=== PATIENT | male | born 2000 | race Caucasian/White ===

== ENCOUNTER 2023-10-11 00:21 | Emergency (ER) | payer SELFPAY ==
--- NOTE | ~2023-10-11 | CT_ITS ---
EXAMINATION: CT HEAD WITHOUT CONTRAST CLINICAL INFORMATION: Acute headache and syncope COMPARISON: None available. TECHNIQUE: Contiguous axial imaging was performed from the skull base to vertex without intravenous administration of contrast. This CT examination was performed using dose optimization techniques as appropriate, variously including the following: *Automated exposure control *Adjustment of mA and/or kV according to patient size (this includes techniques or standardized protocols for targeted exams where dose is matched to indication/reason for exam; i.e. extremities or head) *Use of iterative reconstruction technique DLP: 592 mGy-cm FINDINGS: There is no evidence of acute intracranial hemorrhage or territorial infarction. No abnormal mass-effect or midline shift is seen. Martin to white matter differentiation is well preserved. No extra-axial fluid collections are identified. The ventricles are normal in size. There is no abnormal attenuation within the brain parenchyma. The osseous structures and soft tissues are normal. The mastoid air cells and visualized portions of the paranasal sinuses are well-aerated. CT/CT head/brain wo IV con IMPRESSION: No acute intracranial pathology.
--- NOTE | ~2023-10-11 | XR_ITS ---
EXAMINATION: XR CHEST CLINICAL INFORMATION: Shortness of breath COMPARISON: None available. TECHNIQUE: 2 views of the chest were obtained. FINDINGS: The lungs are clear with no focal consolidation. No evidence of pneumothorax, pulmonary edema, or pleural effusions. The cardiomediastinal silhouette is unremarkable. No acute osseous findings. XR/XR chest 2V IMPRESSION: No acute cardiopulmonary findings.
--- NOTE | 2023-10-11 00:35 | ECG_ITS ---
Test Reason : CP Blood Pressure : / mmHG Vent. Rate : 071 BPM Atrial Rate : 071 BPM P-R Int : 142 ms QRS Dur : 102 ms QT Int : 374 ms P-R-T Axes : 062 073 062 degrees QTc Int : 406 ms Normal sinus rhythm Normal ECG No previous ECGs available Referred By: Generic ED Physician Electronically Signed By:Feroz Piña
[2023-10-11 00:37] VITALS: BP 106/68; BP 116/78; PULSE 100; PULSE 86; RESP 16; TEMP 36.7; O2SAT 97; O2SAT 99; BMI 19.4
[2023-10-11 00:51] LABS: MANUAL DIFF FLAG NO
[2023-10-11 00:53] LABS: Basophils Percent Auto 0.3 % (0-2); Eosinophils Absolute Auto 0.1 X10*3/uL (0.0-0.4); Eosinophils Percent Auto 1.3 % (0-4); Hemoglobin 14.7 g/dl (14.0-18.0); Imm Gran Abs Auto 0.02 X10*3/uL (0.00-0.03); Imm Gran Pct Auto 0.3 % (0.0-0.4); Lymphocytes Absolute Auto 2.4 X10*3/uL (1.2-4.9); Lymphocytes Percent Auto 38.4 % (20-40); Mean Corpuscular HGB Conc 34.2 g/dl (31.0-36.0); Mean Corpuscular Hemoglobin 29.3 pg (27.0-33.0); Mean Corpuscular Volume 85.7 fL (80.0-98.0); Monocytes Absolute Auto 0.6 X10*3/uL (0.1-1.2); Monocytes Percent Auto 8.8 % (2-11); Neutrophils Absolute Auto 3.2 x10*3/uL (2.0-8.3); Neutrophils Percent Auto 50.9 % (45-73); Platelet Count 210 X10*3/uL (160-400); Red Blood Count 5.02 X10*6/uL (4.60-5.80); Red Cell Distribution Width 12.9 % (11.0-16.0); White Blood Count 6.3 X10*3/uL (4.8-10.8)
[2023-10-11 01:13] LABS: Alanine Aminotransferase 21 U/L (0-40); Albumin Level 4.8 g/dL (3.5-5.0); Alkaline Phosphatase 57 U/L (39-117); Anion Gap 11 (12-20); Aspartate Amino Transferase 14 U/L (5-37); Bilirubin Total 0.9 mg/dL (0.0-1.0); Blood Urea Nitrogen 4 mg/dL (9-16); Calcium 10.3 mg/dL (8.4-10.2); Carbon Dioxide 29 mmol/L (22-29); Chloride 104 mmol/L (96-108); Creatinine Clr Calc Pharmacy 102.2; Estimated Glomerular Filt Rate > 60; Glucose Random 89 mg/dL (60-115); Potassium 3.8 mmol/L (3.3-5.1); Sodium 140 mmol/L (135-145); Total Protein 7.5 g/dL (6.5-8.0)
[2023-10-11 01:25] LABS: Troponin-I High Sensitivity < 2.7 ng/L (<3.5-35.0)
[2023-10-11 02:00] VITALS: BP 109/74; PULSE 57; RESP 15; TEMP 36.6; O2SAT 98
--- NOTE | 2023-10-11 03:18 | ED.CHESTPAIN ---
HPI - Chest Pain General Chief Complaint: Chest Pain Stated Complaint: nose bleed & lightheaded Time Seen by Provider: 10/11/23 03:18 History of Present Illness ED Provider: Meng MORRIS narrative: The patient is a 23-year-old male who was brought to the hospital by ambulance after apparently passing out. Apparently the patient had had a nosebleed just before passing out. The patient tells me that he has a headache. He says he does not typically get headaches. He is not very forthcoming about the details of the events that brought him here. He says he does not remember exactly what happened at the time of the incident. He only tells me that he currently has a headache and that he does not typically get headaches. Apparently he had not mentioned a headache to the triage nurse however. At that time he reported chest pain and shortness of breath. Related Data Allergies Allergy/AdvReac Type Severity Reaction Status Date / Time No Known Allergies Allergy Verified 10/11/23 00:40 Review of Systems Review of Systems: Yes all other systems are reviewed and are negative [facility] Social History Social History Smoked in Last 30 Days: No Use of substances other than those prescribed or required for medical reasons: No Advance Directives: No Advance Directives Information Provided: No Do you have a plan to hurt others: No Plan Physical Exam Vital Signs: Vital Signs: Last Vital Signs Temp 97.7 F 10/11/23 05:51 Pulse 63 10/11/23 05:51 Resp 14 10/11/23 05:51 BP 116/79 10/11/23 05:51 Pulse Ox 100 10/11/23 05:51 O2 Del Method Room Air 10/11/23 05:51 BMI result Body Mass Index 19.4 Const: Other: The patient is a thin 23-year-old male who was asleep when I first encountered him. He awoke with tactile stimuli. He seemed apprehensive about talking to me and was not very forthcoming about what brought him to the emergency department. He did not seem in any distress. He complained of a headache but did not look uncomfortable. HEENT: Other: Face is symmetrical. Mucous membranes moist. No epistaxis. Eyes: Other: Pupils were round equal, conjunctivae clear, extraocular movements intact. Neck: Other: No cervical adenopathy. The neck is supple. Resp: Effort & Inspection: normal respiratory effort Auscultation: clear to auscultation bilaterally Cardio: Rate: regular rate Rhythm: regular rhythm Heart sounds: S1 normal heart sound present and S2 normal heart sound present Skin: Other: Skin is dry and unremarkable Neuro: Other: The patient was sleeping. He seemed to be sleeping peacefully. He awoke with tactile stimuli. He seemed apprehensive about talking to me but did not have an abnormal mental status. Cranial nerves 2-12 are intact. He moves all 4 extremities normally and appropriately. He had a supple neck. Extrem: Other: No trauma to the extremities. No deformities. No edema. Medications Administered Discontinued Medications Generic Name Dose Route Start Last Admin Trade Name Freq PRN Reason Stop Dose Admin Acetaminophen 975 mg 10/11/23 05:18 10/11/23 05:52 Acetaminophen 325 Mg Tablet PO 10/11/23 05:19 975 mg ONCE ONE Administration Ibuprofen 400 mg 10/11/23 05:18 10/11/23 05:52 Ibuprofen 400 Mg Tablet PO 10/11/23 05:19 400 mg ONCE ONE Administration Medical Decision Making Medical Decision Making [facility] Narrative: The patient is a 23-year-old male who comes to the emergency room after having had an apparent syncopal episode. Apparently with the patient 1st arrived he complained of chest pain and shortness of breath. When I spoke to him he complained only of having had a headache associated with the syncope. He was not able to give me any significant details about any prodromal symptoms. He seemed unwilling to give any significant details. Given the complaint of a headache with syncope I obtained a head CT that was negative. This was done within 6 hours of the onset of his headache. I think this excludes any possibility of a subarachnoid hemorrhage. When I spoke to the patient after his negative head CT he then said that he had had chest pain and shortness of breath. While sleeping in the emergency department he has been sleeping very comfortably with a heart rate in the 50s and an excellent oxygen saturation on room air and a normal respiratory rate. I do not have any significant concern for pulmonary embolism. I felt the patient at that point could be discharged. Lab Data 10/11/23 00:48 10/11/23 00:48 Labs: Lab Results 10/11/23 Range/Units 00:48 WBC 6.3 (4.8-10.8) X10*3/uL RBC 5.02 (4.60-5.80) X10*6/uL Hgb 14.7 (14.0-18.0) g/dl Hct 43.0 (42.0-52.0) % MCV 85.7 (80.0-98.0) fL MCH 29.3 (27.0-33.0) pg MCHC 34.2 (31.0-36.0) g/dl RDW 12.9 (11.0-16.0) % Plt Count 210 (160-400) X10*3/uL MPV 11.0 (9.4-12.4) fL Immature Gran % (Auto) 0.3 (0.0-0.4) % Neut % (Auto) 50.9 (45-73) % Lymph % (Auto) 38.4 (20-40) % Kinney % (Auto) 8.8 (2-11) % Eos % (Auto) 1.3 (0-4) % Baso % (Auto) 0.3 (0-2) % Lymph # (Auto) 2.4 (1.2-4.9) X10*3/uL Kinney # (Auto) 0.6 (0.1-1.2) X10*3/uL Eos # (Auto) 0.1 (0.0-0.4) X10*3/uL Baso # (Auto) 0.0 (0.0-0.2) X10*3/uL Abs Immat Gran (auto) 0.02 (0.00-0.03) X10*3/uL Absolute Neuts (auto) 3.2 (2.0-8.3) x10*3/uL Absolute Nucleated RBC 0.000 (0.0-0.012) X10*3/uL Nucleated RBC % (auto) 0.0 (0.0-0.2) /100WBC Sodium 140 (135-145) mmol/L Potassium 3.8 (3.3-5.1) mmol/L Chloride 104 (96-108) mmol/L Carbon Dioxide 29 (22-29) mmol/L Anion Gap 11 L (12-20) BUN 4 L (9-16) mg/dL Creatinine 0.88 (0.5-1.4) mg/dL Estim Creat Clear Calc 102.2 Estimated GFR > 60 Random Glucose 89 (60-115) mg/dL Calcium 10.3 H (8.4-10.2) mg/dL Total Bilirubin 0.9 (0.0-1.0) mg/dL AST 14 (5-37) U/L ALT 21 (0-40) U/L Alkaline Phosphatase 57 (39-117) U/L Troponin I High Sens < 2.7 (<3.5-35.0) ng/L Total Protein 7.5 (6.5-8.0) g/dL Albumin 4.8 (3.5-5.0) g/dL Independent Interpretation I performed an independent interpretation of an: EKG Interpretation: EKG at 00:59 shows normal sinus rhythm at 71 beats per minute. It is a normal EKG. Discharge Plan Discharge Clinical Impression: Syncope, Chest pain, Nosebleed, Headache Patient Disposition: Home, Self-Care Additional Instructions: Your testing in the emergency room today is very reassuring. There does not seem to be any dangerous process related to your headache or your chest pain. Please plan on resting and taking it easy. Please plan on following up with your regular doctor. Return to the emergency room if significantly worse. Interventions: ED Discharge Assessment Last Done: 10/11/23 05:51 Discharge Date/Time: 10/11/23 06:10 Print Language: Upper Sorbian
[2023-10-11 05:49] VITALS: BP 116/79; PULSE 63; RESP 14; TEMP 36.5; O2SAT 100
[2023-10-11 05:51] VITALS: BP 116/79; PULSE 63; RESP 14; TEMP 36.5; O2SAT 100
[2023-10-11] MEDS: Ibuprofen 400 MG TABLET PO (05:52)
[2023-10-11] MEDS: Acetaminophen 325 MG TABLET 975 MG PO (05:52)
== END 2023-10-11 06:10 | disposition home or self-care (01) ==
PROVIDERS: Emergency Provider Emergency Medicine
DX: R07.89 Other chest pain (principal); R51.9 Headache, unspecified; R55 Syncope and collapse; R04.0 Epistaxis
CPT/HCPCS: 36415; 70450; 71046; 80053; 84484; 85025; 93005; 99284; 99285

== ENCOUNTER → 2023-10-11 00:35 | Outpatient (BNV) | payer SELFPAY | PROVIDERS: Emergency Provider Emergency Medicine; Visit Provider Internal Medicine Cardiovascular Disease | DX: R07.9 Chest pain, unspecified (principal) | CPT/HCPCS: 93010 ==